=== PATIENT | female | born 1970 | race Caucasian/White ===

== ENCOUNTER 2017-07-29 16:50 | Emergency (ER) | payer OTHER ==
[~2017-07-29] VITALS: Ht 160 cm; Wt 56.8 kg
[~2017-07-29 16:50] MED LIST: IBUP80TA PO; PREM0.452 PO
[2017-07-29] MEDS ORDERED: KETO30IN5 IV (17:09)
[2017-07-29] MEDS ORDERED: NS 1,000 ML IV SCH (17:31)
[2017-07-29] MEDS ORDERED: ONDANSETRON 4MG/2ML VIAL (J2405) IV ONE (17:45)
[2017-07-29] MEDS ORDERED: MORPHINE 4 MG/ML 1ML SYRINGE IV PRN (17:45)
[2017-07-29 18:02] LABS: BASO % 0.3 % (0.0-1.0); EOS % 0.4 % (0.0-3.0); IMMATURE GRANULOCYTE % 0.3 % (0-0); LYMPH # 2.3 10^3/uL (1.5-4.5); MEAN CORPUSCULAR HGB CONC 30.7 g/dl (32.0-36.5); MONO # 0.5 10^3/uL (0.0-0.8); PLATELET COUNT, AUTOMATED 293 10^3/uL (150-450); RED CELL DISTRIBUTION WIDTH 15.2 % (11.5-14.5); WHITE BLOOD COUNT 7.8 10^3/uL (4.0-10.0)
[2017-07-29 18:05] LABS: MEAN CORPUSCULAR VOLUME 68.3 fl (80.0-96.0)
[2017-07-29 18:06] LABS: ADD MORPHOLOGY? YES
[2017-07-29 18:46] LABS: MICROCYTOSIS 2+
[2017-07-29 18:47] LABS: HYPOCHROMASIA 1+
[2017-07-29 19:11] LABS: ALBUMIN 3.4 GM/DL (3.2-5.2); ALBUMIN/GLOBULIN RATIO 1.06 (1.00-1.93); ALKALINE PHOSPHATASE 57 U/L (45-117); ALT/SGPT 13 U/L (12-78); ANION GAP 7 MEQ/L (8-16); AST/SGOT 8 U/L (15-37); BILIRUBIN,DIRECT 0.4 MG/DL (0.0-0.2); BILIRUBIN,TOTAL 1.3 MG/DL (0.2-1.0); BLOOD UREA NITROGEN 16 MG/DL (7-18); CARBON DIOXIDE LEVEL 27 MEQ/L (21-32); CHLORIDE LEVEL 107 MEQ/L (98-107); CREATININE FOR GFR 0.62 MG/DL (0.55-1.02); GLOMERULAR FILTRATION RATE > 60.0 (>58); GLUCOSE, FASTING 89 MG/DL (70-105); POTASSIUM SERUM 3.7 MEQ/L (3.5-5.1); SODIUM LEVEL 141 MEQ/L (136-145); TOTAL PROTEIN 6.6 GM/DL (6.4-8.2)
--- NOTE | 2017-07-29 19:19 | REP ---
CT abdomen and pelvis without IV or oral contrast: Renal stone protocol. History: Left-sided renal colic versus diverticulitis. Comparison study: 08/20/2016. CT findings: Preliminary digital multi line claims adjuster radiograph is unremarkable. The lung bases are clear. There is no evidence of pleural effusion or upper abdominal ascites. The liver and the spleen are normal in size homogeneous in texture. No adrenal lesion is seen on either side. Gallbladder is small but otherwise unremarkable. No pancreatic abnormality is observed. No retroperitoneal mass or adenopathy is observed. There is an intrarenal 3 mm calculus in the left kidney upper pole collecting system. No hydronephrosis is seen. A 2 mm calculus is seen in the upper pole of the right kidney. No right-sided hydronephrosis is noted. No ureteral stone is seen. No bladder calculus is observed. Urinary bladder is largely empty. There are a few pelvic phleboliths. The uterus is surgically absent. A normal appendix is seen just above the urinary bladder in the right pelvis. There is no CT evidence of diverticulosis or diverticulitis. Impression: There is an intrarenal nonobstructive calculus in each kidney, one on each side. No ureteral stone is seen. Normal appendix noted. There is no CT evidence of diverticulitis. Otherwise no acute intra-abdominal abnormality. Signed by Demetrius Torrez MD 07/29/2017 07:51 P
[2017-07-29 19:34] LABS: CALCIUM OXALATE CRYSTALS SMALL
[2017-07-29] MEDS ORDERED: NORCOTAB PO (19:55)
[2017-07-29] MEDS ORDERED: ZOFR4TAB3 PO (19:55)
[2017-07-29 20:02] VITALS: BP 115/67
== END 2017-07-29 20:22 | disposition home or self-care (01) ==
LOC: M ED 16:50
DX: R10.9 Unspecified abdominal pain (principal); N20.0 Calculus of kidney; Z88.6 Allergy status to analgesic agent; Z88.0 Allergy status to penicillin
CPT/HCPCS: 36415; 74176; 80048; 80076; 81001; 83605; 83690; 85025; 87086; 96374; 96375; 99283; J2405

== ENCOUNTER → 2017-09-25 | Outpatient (CLI) | payer OTHER ==
[~2017-09-25] MED LIST changes: +KETO30IN5 IV; +NORCOTAB PO; +ZOFR4TAB3 PO
[2017-09-25 14:00] LABS: BASO % 0.5 % (0.0-1.0); EOS % 0.7 % (0.0-3.0); IMMATURE GRANULOCYTE % 0.7 % (0-0); LYMPH # 1.5 10^3/uL (1.5-4.5); LYMPH % 24.9 % (24.0-44.0); MEAN CORPUSCULAR HEMOGLOBIN 20.9 pg (27.0-33.0); MEAN CORPUSCULAR HGB CONC 30.6 g/dl (32.0-36.5); MEAN CORPUSCULAR VOLUME 68.3 fl (80.0-96.0); MONO # 0.4 10^3/uL (0.0-0.8); MONO % 7.3 % (0.0-5.0); NEUTROPHILS # 3.9 10^3/uL (1.8-7.7); NEUTROPHILS % 65.9 % (36.0-66.0); PLATELET COUNT, AUTOMATED 299 10^3/uL (150-450); RED CELL DISTRIBUTION WIDTH 15.7 % (11.5-14.5); RETIC HEMOGLOBIN EQUIVALENT 22.7 pg (24-36); RETICULOCYTE % 2.7 % (0.5-1.5); WHITE BLOOD COUNT 5.9 10^3/uL (4.0-10.0)
[2017-09-25 14:37] LABS: FERRITIN 48 NG/ML (8-252)
== END ==
LOC: M WUC 09:22
PROVIDERS: ATTEND Family Medicine
DX: D56.3 Thalassemia minor (principal)

== ENCOUNTER 2017-12-02 12:32 | Emergency (ER) | payer OTHER ==
[2017-12-02 13:52] LABS: BASO % 0.3 % (0.0-1.0); EOS # 0.1 10^3/uL (0.0-0.50); EOS % 0.7 % (0.0-3.0); HEMATOCRIT 29.7 % (36.0-47.0); HEMOGLOBIN 9.4 g/dl (12.0-16.0); IMMATURE GRANULOCYTE % 0.5 % (0-3.0); LYMPH # 2.8 10^3/uL (1.5-4.5); MEAN CORPUSCULAR HEMOGLOBIN 21.1 pg (27.0-33.0); MEAN CORPUSCULAR HGB CONC 31.6 g/dl (32.0-36.5); MEAN CORPUSCULAR VOLUME 66.6 fl (80.0-96.0); MONO # 0.5 10^3/uL (0.0-0.8); MONO % 6.8 % (0.0-5.0); NEUTROPHILS # 3.9 10^3/uL (1.8-7.7); NEUTROPHILS % 53.7 % (36.0-66.0); PLATELET COUNT, AUTOMATED 310 10^3/uL (150-450); RED BLOOD COUNT 4.46 10^6/uL (4.00-5.40); RED CELL DISTRIBUTION WIDTH 14.7 % (11.5-14.5); WHITE BLOOD COUNT 7.3 10^3/uL (4.0-10.0)
[2017-12-02 14:04] LABS: ANION GAP 7 MEQ/L (8-16); BLOOD UREA NITROGEN 12 MG/DL (7-18); CALCIUM LEVEL 8.4 MG/DL (8.5-10.1); CARBON DIOXIDE LEVEL 24 MEQ/L (21-32); CHLORIDE LEVEL 110 MEQ/L (98-107); CREATININE FOR GFR 0.61 MG/DL (0.55-1.30); GLOMERULAR FILTRATION RATE > 60.0 (>58); GLUCOSE, FASTING 91 MG/DL (70-100); POTASSIUM SERUM 3.9 MEQ/L (3.5-5.1); SODIUM LEVEL 141 MEQ/L (136-145)
[2017-12-02] MEDS: ACETAMINOPHEN 325 MG TAB PO (14:10)
[2017-12-02] MEDS: ONDANSETRON 4MG/2ML VIAL (J2405) IV (14:10)
== END 2017-12-02 16:42 | disposition home or self-care (01) ==
LOC: M ED 12:32
DX: S00.03XA Contusion of scalp, initial encounter (principal); I44.5 Left posterior fascicular block; W00.9XXA Unspecified fall due to ice and snow, initial encounter; Y92.219 Unspecified school as the place of occurrence of the external cause; Y93.9 Activity, unspecified; R55 Syncope and collapse; D64.9 Anemia, unspecified; Z79.899 Other long term (current) drug therapy; Z88.6 Allergy status to analgesic agent; Z88.0 Allergy status to penicillin
CPT/HCPCS: J2405

== ENCOUNTER → 2018-01-10 | Outpatient (REF) | payer OTHER ==
[2018-01-10 12:45] LABS: BASO % 0.5 % (0.0-1.0); EOS # 0.1 10^3/uL (0.0-0.50); EOS % 0.8 % (0.0-3.0); HEMATOCRIT 36.6 % (36.0-47.0); HEMOGLOBIN 11.2 g/dl (12.0-16.0); IMMATURE GRANULOCYTE % 1.7 % (0-3.0); LYMPH # 2.3 10^3/uL (1.5-4.5); LYMPH % 29.8 % (24.0-44.0); MEAN CORPUSCULAR HEMOGLOBIN 20.7 pg (27.0-33.0); MEAN CORPUSCULAR HGB CONC 30.6 g/dl (32.0-36.5); MEAN CORPUSCULAR VOLUME 67.7 fl (80.0-96.0); MONO # 0.6 10^3/uL (0.0-0.8); NEUTROPHILS # 4.6 10^3/uL (1.8-7.7); NEUTROPHILS % 59.2 % (36.0-66.0); PLATELET COUNT, AUTOMATED 343 10^3/uL (150-450); RED BLOOD COUNT 5.41 10^6/uL (4.00-5.40); RED CELL DISTRIBUTION WIDTH 15.9 % (11.5-14.5); WHITE BLOOD COUNT 7.7 10^3/uL (4.0-10.0)
== END ==
LOC: M SFHCPLAZ 08:24
DX: D56.3 Thalassemia minor (principal)

== ENCOUNTER 2018-01-25 09:20 | Emergency (ER) | payer OTHER ==
[2018-01-25 10:17] LABS: KETONE, URINE AUTO RFX NEGATIVE (NEGATIVE); LEUKOCYTE ESTERASE UR AUTO RFX TRACE (NEGATIVE); MUCUS, URINE RFX SMALL (NEGATIVE); NITRITE, URINE AUTO RFX NEGATIVE (NEGATIVE); RBC, URINE AUTO RFX 2 /HPF (0-3); SPECIFIC GRAVITY UR AUTO RFX 1.023 (1.002-1.035); SQUAM EPITHELIAL CELL UR AURFX 8 /HPF (0-6); WBC, URINE AUTO RFX 5 /HPF (0-3)
[2018-01-25 10:20] LABS: BASO % 0.3 % (0.0-1.0); EOS # 0.1 10^3/uL (0.0-0.50); EOS % 0.9 % (0.0-3.0); HEMATOCRIT 33.7 % (36.0-47.0); HEMOGLOBIN 10.5 g/dl (12.0-15.5); IMMATURE GRANULOCYTE % 0.5 % (0-3.0); LYMPH # 2.1 10^3/uL (1.5-4.5); LYMPH % 32.9 % (24.0-44.0); MEAN CORPUSCULAR HEMOGLOBIN 21.3 pg (27.0-33.0); MEAN CORPUSCULAR HGB CONC 31.2 g/dl (32.0-36.5); MEAN CORPUSCULAR VOLUME 68.4 fl (80.0-96.0); MONO # 0.5 10^3/uL (0.0-0.8); MONO % 7.5 % (0.0-5.0); NEUTROPHILS # 3.7 10^3/uL (1.8-7.7); NEUTROPHILS % 57.9 % (36.0-66.0); PLATELET COUNT, AUTOMATED 340 10^3/uL (150-450); RED BLOOD COUNT 4.93 10^6/uL (4.00-5.40); RED CELL DISTRIBUTION WIDTH 15.7 % (11.5-14.5); WHITE BLOOD COUNT 6.4 10^3/uL (4.0-10.0)
[2018-01-25 10:39] LABS: ANION GAP 6 MEQ/L (8-16); BLOOD UREA NITROGEN 12 MG/DL (7-18); CALCIUM LEVEL 8.9 MG/DL (8.5-10.1); CARBON DIOXIDE LEVEL 26 MEQ/L (21-32); CHLORIDE LEVEL 110 MEQ/L (98-107); CREATININE FOR GFR 0.89 MG/DL (0.55-1.30); GLOMERULAR FILTRATION RATE > 60.0 (>58); GLUCOSE, FASTING 88 MG/DL (70-100); POTASSIUM SERUM 4.6 MEQ/L (3.5-5.1); SODIUM LEVEL 142 MEQ/L (136-145)
== END 2018-01-25 11:50 | disposition home or self-care (01) ==
LOC: M ED 09:20
DX: N83.02 Follicular cyst of left ovary (principal); Z98.890 Other specified postprocedural states; Z88.8 Allergy status to other drugs, medicaments and biological substances; Z88.0 Allergy status to penicillin; Z86.2 Personal history of diseases of the blood and blood-forming organs and certain disorders involving the immune mechanism
CPT/HCPCS: 76775

== ENCOUNTER → 2018-07-16 | Outpatient (CLI) | payer OTHER | LOC: M WUC 18:31 | DX: S60.032A Contusion of left middle finger without damage to nail, initial encounter (principal); X58.XXXA Exposure to other specified factors, initial encounter; Y92.9 Unspecified place or not applicable | CPT/HCPCS: 73140 ==

== ENCOUNTER → 2018-10-03 | Outpatient (CLI) | payer OTHER ==
[~2018-10-03] MED LIST changes: +IBUP-1022 PO; +VITA100T86 PO; +ZOFR4TAB14 PO; -ZOFR4TAB3 PO
[2018-10-03 10:19] LABS: HEMATOCRIT 31.3 % (36.0-47.0); HEMOGLOBIN 9.6 g/dl (12.0-15.5); MEAN CORPUSCULAR HEMOGLOBIN 21.1 pg (27.0-33.0); MEAN CORPUSCULAR HGB CONC 30.7 g/dl (32.0-36.5); MEAN CORPUSCULAR VOLUME 68.6 fl (80.0-96.0); PLATELET COUNT, AUTOMATED 299 10^3/uL (150-450); RED BLOOD COUNT 4.56 10^6/uL (4.00-5.40); WHITE BLOOD COUNT 5.3 10^3/uL (4.0-10.0)
[2018-10-03 11:12] LABS: ALBUMIN 3.7 GM/DL (3.2-5.2); ALT/SGPT 12 U/L (12-78); BILIRUBIN,TOTAL 1.9 MG/DL (0.2-1.0); BLOOD UREA NITROGEN 14 MG/DL (7-18); CALCIUM LEVEL 8.8 MG/DL (8.5-10.1); CARBON DIOXIDE LEVEL 27 MEQ/L (21-32); CHLORIDE LEVEL 106 MEQ/L (98-107); FERRITIN 44 NG/ML (8-252); GLOMERULAR FILTRATION RATE > 60.0 (>58); GLUCOSE, FASTING 85 MG/DL (70-100); IRON (FE) 147 UG/DL (50-170); PERCENT SATURATION 52.9 % (13.2-45.0); POTASSIUM SERUM 4.6 MEQ/L (3.5-5.1); SODIUM LEVEL 139 MEQ/L (136-145); TOTAL IRON BINDING CAPACITY 278 UG/DL (250-450)
== END ==
LOC: M WUC 08:11
PROVIDERS: ATTEND Family Medicine
DX: D56.3 Thalassemia minor (principal); E80.6 Other disorders of bilirubin metabolism

== ENCOUNTER 2019-03-23 01:55 | Emergency (ER) | payer OTHER ==
[~2019-03-23] VITALS: Ht 160 cm; Wt 125.0 kg
[~2019-03-23 01:55] MED LIST changes: +HYDR-3715 PO; -NORCOTAB PO
[2019-03-23] MEDS ORDERED: KETOROLAC 60 MG/2 ML VIAL (J1885) IM ONE (03:30)
--- NOTE | 2019-03-23 04:46 | REPVR ---
EXAM: US Duplex Right Upper Extremity Veins, Limited EXAM DATE/TIME: 03/23/2019 4:16 AM CLINICAL HISTORY: 49 years old, female; Pain; Arn, upper; Right; Additional info: Rue pain TECHNIQUE: Imaging protocol: Real-time Duplex ultrasound of the Right Upper Extremity with 2-D cantu scale, color Doppler flow and spectral waveform analysis. Limited exam focused on the right upper extremity veins. COMPARISON: No relevant prior studies available. FINDINGS: Right deep veins: Unremarkable. Axillary and brachial veins are patent throughout without thrombus. Normal Doppler waveforms. Normal compressibility and/or augmentation response. Visualized internal jugular and subclavian veins are patent. Right superficial veins: Unremarkable. Visualized cephalic and basilic veins are patent without thrombus. Soft tissues: Unremarkable. IMPRESSION: No acute findings. No evidence of deep vein thrombosis. Electronically signed by: Sharon Cuenca On 03/23/2019 04:46:10 AM
[2019-03-23] MEDS ORDERED: ROBA500T PO (04:49)
[2019-03-23] MEDS ORDERED: NAPR-837 PO (04:49)
[2019-03-23 04:59] VITALS: BP 116/68
[2019-03-23] MEDS ORDERED: METHOCARBAMOL 750 MG TAB PO ONE (05:00)
--- NOTE | 2019-03-23 10:09 | REP ---
REASON: Right upper extremity pain. No priors. No history of trauma. FINDINGS: Three views of the shoulder were performed. The acromioclavicular and glenohumeral relationships are within normal limits. There is no acute fracture or destructive osseous lesions. Electronically Signed by Toy Damian DO 03/23/2019 12:56 P
== END 2019-03-23 05:06 | disposition home or self-care (01) ==
LOC: M ED 01:55
DX: M79.621 Pain in right upper arm (principal); Z79.899 Other long term (current) drug therapy; Z88.0 Allergy status to penicillin; Z88.8 Allergy status to other drugs, medicaments and biological substances
CPT/HCPCS: 73030; 93971; 96372; 99284; J1885

== ENCOUNTER → 2019-10-07 | Outpatient (CLI) | payer OTHER ==
[~2019-10-07] MED LIST changes: +NAPR-837 PO; +ROBA500T PO
[2019-10-07 16:50] LABS: ALBUMIN 4.2 GM/DL (3.2-5.2); ALT/SGPT 16 U/L (12-78); BILIRUBIN,TOTAL 1.9 MG/DL (0.2-1.0); BLOOD UREA NITROGEN 13 MG/DL (7-18); CALCIUM LEVEL 9.1 MG/DL (8.5-10.1); CARBON DIOXIDE LEVEL 30 MEQ/L (21-32); CHLORIDE LEVEL 104 MEQ/L (98-107); CREATININE FOR GFR 0.81 MG/DL (0.55-1.30); GLOMERULAR FILTRATION RATE > 60.0 (>58); GLUCOSE, FASTING 93 MG/DL (70-100); IRON (FE) 155 UG/DL (50-170); POTASSIUM SERUM 3.9 MEQ/L (3.5-5.1); SODIUM LEVEL 140 MEQ/L (136-145); TOTAL IRON BINDING CAPACITY 337 UG/DL (250-450); TOTAL PROTEIN 7.7 GM/DL (6.4-8.2)
[2019-10-07 16:51] LABS: HEMATOCRIT 34.9 % (36.0-47.0); HEMOGLOBIN 10.7 g/dl (12.0-15.5); MEAN CORPUSCULAR HEMOGLOBIN 21.1 pg (27.0-33.0); MEAN CORPUSCULAR HGB CONC 30.7 g/dl (32.0-36.5); PLATELET COUNT, AUTOMATED 352 10^3/uL (150-450); RED BLOOD COUNT 5.06 10^6/uL (4.00-5.40); WHITE BLOOD COUNT 11.7 10^3/uL (4.0-10.0)
[2019-10-07 16:59] LABS: TOTAL 25(OH) VITAMIN D 47.8 NG/ML (30.0-100.0)
== END ==
LOC: M WUC 13:54
PROVIDERS: ATTEND Family Medicine
DX: D56.3 Thalassemia minor (principal); E55.9 Vitamin D deficiency, unspecified

== ENCOUNTER → 2020-07-01 | Outpatient (CLI) | payer OTHER | LOC: M LABSMTC 09:40 | PROVIDERS: ATTEND Ophthalmology | DX: Z01.812 Encounter for preprocedural laboratory examination (principal); Z20.828 Contact with and (suspected) exposure to other viral communicable diseases | CPT/HCPCS: C9803; U0003 ==

== ENCOUNTER → 2020-11-14 | Outpatient (CLI) | payer OTHER ==
[2020-11-14 13:09] LABS: HEMATOCRIT 35.2 % (36.0-47.0); HEMOGLOBIN 10.8 g/dl (12.0-15.5); MEAN CORPUSCULAR HEMOGLOBIN 21.1 pg (27.0-33.0); MEAN CORPUSCULAR HGB CONC 30.7 g/dl (32.0-36.5); MEAN CORPUSCULAR VOLUME 68.8 fl (80.0-96.0); PLATELET COUNT, AUTOMATED 332 10^3/uL (150-450); RED BLOOD COUNT 5.12 10^6/uL (4.00-5.40); WHITE BLOOD COUNT 8.6 10^3/uL (4.0-10.0)
[2020-11-14 13:32] LABS: ALT/SGPT 30 U/L (12-78); BILIRUBIN,TOTAL 1.4 MG/DL (0.2-1.0); BLOOD UREA NITROGEN 17 MG/DL (7-18); CALCIUM LEVEL 9.4 MG/DL (8.5-10.1); CARBON DIOXIDE LEVEL 29 MEQ/L (21-32); CHLORIDE LEVEL 100 MEQ/L (98-107); CREATININE FOR GFR 0.76 MG/DL (0.55-1.30); FERRITIN 67 NG/ML (8-252); GLOMERULAR FILTRATION RATE > 60.0 (>58); GLUCOSE, FASTING 90 MG/DL (70-100); IRON (FE) 52 UG/DL (50-170); PERCENT SATURATION 16.9 % (13.2-45.0); POTASSIUM SERUM 3.8 MEQ/L (3.5-5.1); SODIUM LEVEL 139 MEQ/L (136-145); TOTAL IRON BINDING CAPACITY 307 UG/DL (250-450); TOTAL PROTEIN 7.7 GM/DL (6.4-8.2)
[2020-11-14 13:40] LABS: TOTAL 25(OH) VITAMIN D 54.1 NG/ML (30.0-100.0)
== END ==
LOC: M WUC 11:06
PROVIDERS: ATTEND Family Medicine
DX: D56.3 Thalassemia minor (principal); E55.9 Vitamin D deficiency, unspecified; E80.6 Other disorders of bilirubin metabolism

== ENCOUNTER → 2021-11-02 | Outpatient (CLI) | payer OTHER | LOC: M WHC 06:58 | PROVIDERS: ATTEND Advanced Practice Midwife | DX: Z12.31 Encounter for screening mammogram for malignant neoplasm of breast (principal) ==

== ENCOUNTER → 2021-11-13 | Outpatient (REF) | payer OTHER ==
[2021-11-13 13:36] LABS: HEMATOCRIT 34.9 % (36.0-47.0); HEMOGLOBIN 10.8 g/dl (12.0-15.5); MEAN CORPUSCULAR HEMOGLOBIN 20.7 pg (27.0-33.0); MEAN CORPUSCULAR HGB CONC 30.9 g/dl (32.0-36.5); PLATELET COUNT, AUTOMATED 325 10^3/uL (150-450); RED BLOOD COUNT 5.21 10^6/uL (4.00-5.40); WHITE BLOOD COUNT 7.1 10^3/uL (4.0-10.0)
[2021-11-13 14:18] LABS: ALBUMIN 3.9 GM/DL (3.2-5.2); ALT/SGPT 23 U/L (12-78); BILIRUBIN,TOTAL 0.9 MG/DL (0.2-1.0); BLOOD UREA NITROGEN 16 MG/DL (7-18); CARBON DIOXIDE LEVEL 25 MEQ/L (21-32); CHLORIDE LEVEL 107 MEQ/L (98-107); CREATININE FOR GFR 0.76 MG/DL (0.55-1.30); FERRITIN 77 NG/ML (8-252); GLOMERULAR FILTRATION RATE > 60.0 (>58); GLUCOSE, FASTING 95 MG/DL (70-100); IRON (FE) 103 UG/DL (50-170); PERCENT SATURATION 31.6 % (13.2-45.0); POTASSIUM SERUM 3.9 MEQ/L (3.5-5.1); SODIUM LEVEL 139 MEQ/L (136-145); TOTAL IRON BINDING CAPACITY 326 UG/DL (250-450); TOTAL PROTEIN 7.7 GM/DL (6.4-8.2)
[2021-11-13 14:20] LABS: TOTAL 25(OH) VITAMIN D 37.7 NG/ML (30.0-100.0)
== END ==
LOC: M LAB REF 12:56
PROVIDERS: ATTEND Family Medicine
DX: D56.3 Thalassemia minor (principal); E80.6 Other disorders of bilirubin metabolism; E55.9 Vitamin D deficiency, unspecified

== ENCOUNTER → 2022-01-19 | Outpatient (CLI) | payer OTHER | LOC: M LABSMTC 10:15 | PROVIDERS: ATTEND Anesthesiology | DX: Z01.812 Encounter for preprocedural laboratory examination (principal); Z20.822 Contact with and (suspected) exposure to COVID-19 ==

== ENCOUNTER 2022-01-24 08:09 | Day surgery (SDC) | payer OTHER ==
[~2022-01-24] VITALS: Ht 160 cm; Wt 64.4 kg
[~2022-01-24 08:09] MED LIST changes: +NS 1,000 ML IV ONE
[2022-01-24] MEDS ORDERED: LIDOCAINE 2% 100MG/5ML SDV (FOR ANES.) As Ordered ONE (08:19)
[2022-01-24] MEDS ORDERED: propofoL 200 MG/20 ML VIAL As Ordered ONE (08:19)
== END 2022-01-24 10:10 | disposition home or self-care (01) ==
LOC: M OPP 08:09
PROVIDERS: ATTEND Surgery
DX: Z12.11 Encounter for screening for malignant neoplasm of colon (principal); Z80.0 Family history of malignant neoplasm of digestive organs; K64.4 Residual hemorrhoidal skin tags; Z88.0 Allergy status to penicillin; Z88.8 Allergy status to other drugs, medicaments and biological substances

== ENCOUNTER → 2022-11-06 | Outpatient (CLI) | payer OTHER ==
[~2022-11-06] MED LIST changes: -NS 1,000 ML IV ONE
== END ==
LOC: M WHC 07:58
PROVIDERS: ATTEND Obstetrics & Gynecology
DX: Z12.31 Encounter for screening mammogram for malignant neoplasm of breast (principal); Z13.820 Encounter for screening for osteoporosis

== ENCOUNTER → 2022-11-23 | Outpatient (CLI) | payer OTHER ==
[2022-11-23 10:29] LABS: BASO % 0.5 % (0.0-1.0); EOS % 0.6 % (0.0-3.0); HEMATOCRIT 36.4 % (36.0-47.0); LYMPH # 2.1 10^3/uL (1.5-5.0); LYMPH % 31.9 % (24.0-44.0); MEAN CORPUSCULAR HEMOGLOBIN 20.7 pg (27.0-33.0); MEAN CORPUSCULAR HGB CONC 30.2 g/dl (32.0-36.5); MEAN CORPUSCULAR VOLUME 68.4 fl (80.0-96.0); MONO # 0.6 10^3/uL (0.0-0.8); MONO % 9.5 % (2.0-8.0); NEUTROPHILS # 3.7 10^3/uL (1.5-8.5); NEUTROPHILS % 57.2 % (36.0-66.0); PLATELET COUNT, AUTOMATED 313 10^3/uL (150-450); RED BLOOD COUNT 5.32 10^6/uL (4.00-5.40); WHITE BLOOD COUNT 6.5 10^3/uL (4.0-10.0)
[2022-11-23 11:19] LABS: THYROID STIMULATING HORMONE 1.301 uIU/ML (0.55-4.78)
[2022-11-23 11:25] LABS: ALBUMIN 3.9 G/DL (3.2-5.2); ALKALINE PHOSPHATASE 82 U/L (46-116); ALT/SGPT 21 U/L (7.0-40); AST/SGOT 20 U/L (<34); BILIRUBIN,TOTAL 1.6 MG/DL (0.3-1.2); BLOOD UREA NITROGEN 13 MG/DL (9-23); CALCIUM LEVEL 9.3 MG/DL (8.5-10.1); CARBON DIOXIDE LEVEL 26 MMOL/L (20-31); CHLORIDE LEVEL 105 MMOL/L (98-107); CHOLESTEROL LEVEL 121 MG/DL (<200); CHOLESTEROL RISK RATIO 3.07 (<5); CREATININE FOR GFR 0.79 MG/DL (0.55-1.30); GLOMERULAR FILTRATION RATE > 60.0 (>51); GLUCOSE, FASTING 95 MG/DL (60-100); HDL CHOLESTEROL 39.3 MG/DL (>40); LDL CHOLESTEROL 58.9 MG/DL (<100); NON-HDL-C 82 MG/DL; POTASSIUM SERUM 4.5 MMOL/L (3.5-5.1); SODIUM LEVEL 140 MMOL/L (136-145); TOTAL PROTEIN 7.2 G/DL (5.7-8.2); TRIGLYCERIDES LEVEL 114 MG/DL (<150)
== END ==
LOC: M PLALAB 07:45
PROVIDERS: ATTEND Physician Assistant
DX: D56.3 Thalassemia minor (principal); Z13.220 Encounter for screening for lipoid disorders

== ENCOUNTER → 2023-11-04 | Outpatient (REF) | payer BC | LOC: M SFHCWAGY 11:56 | PROVIDERS: ATTEND Obstetrics & Gynecology | DX: Z12.4 Encounter for screening for malignant neoplasm of cervix (principal) | CPT/HCPCS: 87624; G0123 ==

== ENCOUNTER → 2023-12-09 | Outpatient (CLI) | payer BC ==
[2023-12-09 09:46] LABS: BASO % 0.6 % (0.0-1.0); EOS % 0.8 % (0.0-3.0); HEMATOCRIT 35.6 % (36.0-47.0); HEMOGLOBIN 10.9 g/dl (12.0-15.5); LYMPH # 1.7 10^3/uL (1.5-5.0); LYMPH % 31.5 % (24.0-44.0); MEAN CORPUSCULAR HEMOGLOBIN 20.8 pg (27.0-33.0); MEAN CORPUSCULAR HGB CONC 30.6 g/dl (32.0-36.5); MEAN CORPUSCULAR VOLUME 68.1 fl (80.0-96.0); MONO # 0.4 10^3/uL (0.0-0.8); MONO % 7.2 % (2.0-8.0); NEUTROPHILS # 3.1 10^3/uL (1.5-8.5); NEUTROPHILS % 59.3 % (36.0-66.0); PLATELET COUNT, AUTOMATED 311 10^3/uL (150-450); RED BLOOD COUNT 5.23 10^6/uL (4.00-5.40); WHITE BLOOD COUNT 5.3 10^3/uL (4.0-10.0)
[2023-12-09 10:12] LABS: FREE T4 0.93 NG/DL (0.89-1.76); THYROID STIMULATING HORMONE 2.364 uIU/ML (0.55-4.78)
[2023-12-09 10:14] LABS: TOTAL 25(OH) VITAMIN D 26.9 NG/ML (20.0-100.0)
[2023-12-09 10:16] LABS: ALBUMIN 3.8 G/DL (3.2-5.2); ALKALINE PHOSPHATASE 82 U/L (46-116); ALT/SGPT 23 U/L (7.0-40); AST/SGOT 17 U/L (<34); BILIRUBIN,TOTAL 1.9 MG/DL (0.3-1.2); BLOOD UREA NITROGEN 15 MG/DL (9-23); CALCIUM LEVEL 8.8 MG/DL (8.5-10.1); CARBON DIOXIDE LEVEL 26 MMOL/L (20-31); CHLORIDE LEVEL 107 MMOL/L (98-107); CHOLESTEROL LEVEL 160 MG/DL (<200); CHOLESTEROL RISK RATIO 3.48 (<5); CREATININE FOR GFR 0.79 MG/DL (0.55-1.30); GLOMERULAR FILTRATION RATE > 60.0 (>51); GLUCOSE, FASTING 92 MG/DL (60-100); HDL CHOLESTEROL 45.9 MG/DL (>40); LDL CHOLESTEROL 96.5 MG/DL (<100); NON-HDL-C 114.1 MG/DL; SODIUM LEVEL 140 MMOL/L (136-145); TOTAL PROTEIN 7.2 G/DL (5.7-8.2); TRIGLYCERIDES LEVEL 88 MG/DL (<150)
== END ==
LOC: M WUC 08:20
PROVIDERS: ATTEND Nurse Practitioner Family
DX: D56.3 Thalassemia minor (principal); E55.9 Vitamin D deficiency, unspecified; R53.83 Other fatigue; Z13.220 Encounter for screening for lipoid disorders

== ENCOUNTER → 2023-12-09 | Outpatient (CLI) | payer BC | LOC: M WHC 07:24 | PROVIDERS: ATTEND Obstetrics & Gynecology | DX: Z12.31 Encounter for screening mammogram for malignant neoplasm of breast (principal) ==

== ENCOUNTER → 2024-12-23 | Outpatient (CLI) | payer BC ==
[2024-12-23 12:37] LABS: BASO % 0.5 % (0.0-1.0); EOS # 0.1 10^3/uL (0.0-0.5); EOS % 1.1 % (0.0-3.0); HEMATOCRIT 36.6 % (36.0-47.0); HEMOGLOBIN 10.8 g/dl (12.0-15.5); LYMPH # 2.4 10^3/uL (1.5-5.0); LYMPH % 36.5 % (24.0-44.0); MEAN CORPUSCULAR HGB CONC 29.5 g/dl (32.0-36.5); MEAN CORPUSCULAR VOLUME 67.8 fl (80.0-96.0); MONO # 0.5 10^3/uL (0.0-0.8); MONO % 7.1 % (2.0-8.0); NEUTROPHILS # 3.6 10^3/uL (1.5-8.5); NEUTROPHILS % 54.2 % (36.0-66.0); PLATELET COUNT, AUTOMATED 319 10^3/uL (150-450); WHITE BLOOD COUNT 6.6 10^3/uL (4.0-10.0)
[2024-12-23 13:04] LABS: FREE T4 0.95 NG/DL (0.89-1.76); THYROID STIMULATING HORMONE 2.154 uIU/ML (0.55-4.78)
[2024-12-23 13:06] LABS: ALBUMIN 3.9 G/DL (3.2-5.2); ALKALINE PHOSPHATASE 90 U/L (35-104); ALT/SGPT 29 U/L (7.0-40); AST/SGOT 19 U/L (<34); BILIRUBIN,TOTAL 2.2 MG/DL (0.3-1.2); BLOOD UREA NITROGEN 14 MG/DL (9-23); CARBON DIOXIDE LEVEL 28 MMOL/L (20-31); CHLORIDE LEVEL 107 MMOL/L (98-107); CHOLESTEROL LEVEL 143 MG/DL (<200); CHOLESTEROL RISK RATIO 2.73 (<5); CREATININE FOR GFR 0.72 MG/DL (0.55-1.30); GLOMERULAR FILTRATION RATE > 60.0 (>51); GLUCOSE, FASTING 89 MG/DL (60-100); HDL CHOLESTEROL 52.2 MG/DL (>40); LDL CHOLESTEROL 78.2 MG/DL (<100); NON-HDL-C 90.8 MG/DL; SODIUM LEVEL 142 MMOL/L (136-145); TOTAL PROTEIN 7.3 G/DL (5.7-8.2); TRIGLYCERIDES LEVEL 63 MG/DL (<150)
== END ==
LOC: M WUC 08:02
PROVIDERS: ATTEND Nurse Practitioner Family
DX: Z00.00 Encounter for general adult medical examination without abnormal findings (principal); Z13.220 Encounter for screening for lipoid disorders; R53.83 Other fatigue; E55.9 Vitamin D deficiency, unspecified

== ENCOUNTER → 2025-04-22 | Outpatient (CLI) | payer BC ==
[~2025-04-22] MED LIST changes: +MAGN400T33 PO; +MECL-86 PO
[2025-04-22 12:39] LABS: DRVV SCREEN 30.6 SECONDS
[2025-04-22 12:40] LABS: PTT LUPUS TYPE ANTICOAG SCREEN 0.8 (0-1.20)
[2025-04-26 22:55] LABS: CARDIOLIPIN IGA ANTIBODY 28.6 APL-U/mL (<20.0); CARDIOLIPIN IGG ANTIBODY 38.3 GPL-U/mL (<20.0); CARDIOLIPIN IGM ANTIBODY 5.0 MPL-U/mL (<20.0)
[2025-04-27 00:10] LABS: ANTI THROMBIN 3 FUNCT ACTIVITY 105 % normal (80-135); PROTEIN C FUNCTIONAL ACTIVITY 129 % normal (70-180); PROTEIN S FUNCTIONAL ACTIVITY 72 % normal (60-140)
== END ==
LOC: M WUC 09:45
PROVIDERS: ATTEND Psychiatry & Neurology Neurology
DX: G45.9 Transient cerebral ischemic attack, unspecified (principal)

== ENCOUNTER → 2025-08-19 | Outpatient (CLI) | payer BC ==
[~2025-08-19] MED LIST changes: -IBUP-1022 PO; +IBUP600T42 PO
[2025-08-19 17:58] LABS: VITAMIN B12 LEVEL 440 PG/ML (211-911)
[2025-08-23 15:32] LABS: HOMOCYST(E)INE SERUM 7.6 umol/L (< or = 13.4)
[2025-08-23 16:57] LABS: CARDIOLIPIN IGA ANTIBODY 29.8 APL-U/mL (<20.0); CARDIOLIPIN IGG ANTIBODY 67.8 GPL-U/mL (<20.0); CARDIOLIPIN IGM ANTIBODY 4.2 MPL-U/mL (<20.0)
[2025-08-24 20:14] LABS: VITAMIN E(ALPHA TOCOPHEROL) 9.6 mg/L (5.7-19.9); VITAMIN E(GAMMA TOCOPHEROL) 1.1 mg/L (<=4.3)
[2025-08-25 08:11] LABS: VITAMIN B6,PYRIDOXAL PHOSPHATE 7.2 ng/mL (2.1-21.7)
[2025-08-25 17:37] LABS: BETA-2 GLYCOPROTEIN I ABY IGA 19.7 U/mL (<20.0); BETA-2 GLYCOPROTEIN I ABY IGG 80.0 U/mL (<20.0); BETA-2 GLYCOPROTEIN I ABY IGM 4.4 U/mL (<20.0)
[2025-08-27 08:55] LABS: DRVV SCREEN 31.0 SECONDS
[2025-08-27 09:21] LABS: PTT LUPUS TYPE ANTICOAG SCREEN 0.79 (0-1.20)
== END ==
LOC: M LAB 15:59
PROVIDERS: ATTEND Psychiatry & Neurology Neurology
DX: G45.0 Vertebro-basilar artery syndrome (principal); E53.8 Deficiency of other specified B group vitamins; E51.9 Thiamine deficiency, unspecified

== ENCOUNTER → 2025-10-01 | Outpatient (CLI) | payer BC ==
[2025-10-01 06:50] LABS: BASO # 0.0 10^3/uL (0.0-0.2); BASO % 0.4 % (0.0-1.0); EOS # 0.1 10^3/uL (0.0-0.5); EOS % 1.3 % (0.0-3.0); LYMPH # 1.8 10^3/uL (1.5-5.0); LYMPH % 33.5 % (24.0-44.0); MONO # 0.4 10^3/uL (0.0-0.8); MONO % 8.1 % (2.0-8.0); NEUTROPHILS # 3.0 10^3/uL (1.5-8.5); NEUTROPHILS % 56.1 % (36.0-66.0); PLATELET COUNT, AUTOMATED 289 10^3/uL (150-450)
[2025-10-01 07:18] LABS: ALT/SGPT 22.0 U/L (7.0-40); AST/SGOT 17.0 U/L (<34); CALCIUM LEVEL 8.9 MG/DL (8.5-10.1); CARBON DIOXIDE LEVEL 28.0 MMOL/L (20-31); CHLORIDE LEVEL 104.0 MMOL/L (98-107); CHOLESTEROL LEVEL 140.0 MG/DL (<200); CHOLESTEROL RISK RATIO 2.86 (<5); CREATININE FOR GFR 0.79 MG/DL (0.55-1.30); GLOMERULAR FILTRATION RATE 89.4 (>51); LDL CHOLESTEROL 76.3 MG/DL (<100); NON-HDL-C 91.1 MG/DL; POTASSIUM SERUM 4.2 MMOL/L (3.5-5.1); SODIUM LEVEL 138.0 MMOL/L (136-145); TRIGLYCERIDES LEVEL 74.0 MG/DL (<150)
[2025-10-01 07:20] LABS: FREE T4 1.04 NG/DL (0.89-1.76); TOTAL 25(OH) VITAMIN D 33.4 NG/ML (20.0-100.0)
== END ==
LOC: M LAB 06:05
PROVIDERS: ATTEND Nurse Practitioner Family
DX: D56.3 Thalassemia minor (principal); R53.82 Chronic fatigue, unspecified; E55.9 Vitamin D deficiency, unspecified; Z13.220 Encounter for screening for lipoid disorders